=== PATIENT | female | born 1960 | race Caucasian/White ===

== ENCOUNTER 2019-08-13 09:57 | Emergency (ER) | payer OTHER ==
[2019-08-13] MEDS ORDERED: Ondansetron INJ* 2 MG/ML VIAL IV ONE (10:28)
[2019-08-13] MEDS ORDERED: NS 0.9% 1000 ML** 1,000 ML IV ONE ×2 (10:28→11:40)
[2019-08-13 10:45] LABS: Influenza A Molecular Negative (Negative); Influenza B Molecular Negative (Negative)
--- NOTE | 2019-08-13 11:26 | UC ---
Nausea/Vomiting/Diarrhea HPI - HPI Summary HPI Summary: PATIENT COMES IN WITH 4 DAYS OF NAUSEA AND VOMITING AND BODY ACHES/CHILLS. NO DIARRHEA. NO DOCUMENTED FEVER. STATES SHE IS RECOVERING FROM A URI. HAS BEEN UNABLE TO KEEP ANY OF HER FOOD OR MEDICATION DOWN FOR A FEW DAYS. IS FEELING FATIGUED AND DEHYDRATED. - History of Current Complaint Chief Complaint: UCGeneralIllness Stated Complaint: VOMITING Time Seen by Provider: 08/13/19 10:25 Hx Obtained From: Patient Onset/Duration: Gradual Onset, Lasting Days, Still Present Timing: Constant Severity Initially: Moderate Severity Currently: Moderate Pain Intensity: 0 Pain Scale Used: 0-10 Numeric Character: Not Applicable Aggravating Factor(s): Food Alleviating Factor(s): Nothing Nausea/Vomiting Presence: Nauseated, Vomiting Vomiting Frequency: Every 1-2 hours Nausea/Vomiting Duration: 3-7 days Vomiting Characteristics: Retching, Nonbilious Diarrhea Presence: No - Allergies/Home Medications Allergies/Adverse Reactions: Allergies Allergy/AdvReac Type Severity Reaction Status Date / Time iodine Allergy Intermediate Altered Verified 08/13/19 10:21 Mental Status hydrocodone Allergy [place] Verified 08/13/19 10:21 contrast dye Allergy Intermediate Shakes Uncoded 08/13/19 10:21 Home Medications: Home Medications Escitalopram Oxalate [Lexapro 20 mg] 20 mg PO QAM 11/27/14 [History Confirmed ] Methocarbamol 1,500 mg PO Q6H PRN 09/25/18 [History Confirmed 08/13/19] Acetaminophen-Cod #4 Tablet 1 tab PO SEE INSTRUCTIONS MDD 6 tablets 11/27/18 [ History Confirmed 08/13/19] Lisinopril TAB* [Prinivil TAB 10 MG*] 10 mg PO DAILY 11/27/18 [History Confirmed 08/13/19] Venlafaxine EXT RELEASE CAP* [Effexor Xr CAP*] 37.5 mg PO DAILY 11/27/18 [ History Confirmed 08/13/19] Carisoprodol TAB* [Soma TAB*] 350 mg PO Q6H PRN MDD 4 05/21/19 [History Confirmed 08/13/19] Gabapentin TAB(NF) [Neurontin 600 mg TAB(NF)] 600 mg PO TID 05/21/19 [History Confirmed 08/13/19] Morphine TAB Extended Rel(*) [Ms Contin(*)] 15 mg PO BID MDD 2 05/21/19 [ History Confirmed 08/13/19] Ondansetron ODT TAB* [Zofran Odt TAB*] 4 mg PO Q6H PRN #20 tab.odt 08/13/19 [Rx] PMH/Surg Hx/FS Hx/Imm Hx - Additional Past Medical History Additional PMH: LUPUS, SCELRODERMA, ARTHRITIS - Surgical History Surgical History: Yes Surgery Procedure, Year, and Place: HERNIA SURGERY 2014 - Family History Known Family History: Positive: Non-Contributory - Social History Alcohol Use: None Substance Use Type: Marijuana Substance Use Comment - Amount & Last Used: occasional Smoking Status (MU): Light Every Day Tobacco Smoker Type: Cigarettes Amount Used/How Often: 10 day When Did the Patient Quit Smoking/Using Tobacco: 26 YEARS, QUIT FOR 5; SMOKED FOR 5, BUT PLANS TO QUIT AGAIN Household Exposure Type: Cigarettes Review of Systems All Other Systems Reviewed And Are Negative: Yes Constitutional: Positive: Chills, Fatigue ENT: Positive: Negative Respiratory: Positive: Cough Cardiovascular: Positive: Negative Gastrointestinal: Positive: Vomiting, Nausea. Negative: Abdominal Pain, Diarrhea Genitourinary: Positive: Negative Musculoskeletal: Positive: Negative Physical Exam Triage Information Reviewed: Yes Appearance: No Pain Distress, Well-Nourished, Ill-Appearing - FATIGUED Vital Signs: Initial Vital Signs Temp 97.6 F 08/13/19 10:13 Pulse 131 08/13/19 10:13 Resp 20 08/13/19 10:13 BP 138/96 08/13/19 10:13 Pulse Ox 98 08/13/19 10:13 Laboratory Tests 08/13/19 10:33 Influenza A (Rapid) Negative Influenza B (Rapid) Negative Vital Signs Reviewed: Yes Eyes: Positive: Conjunctiva Clear ENT: Positive: Hearing grossly normal Neck: Positive: Supple Respiratory Exam: Normal Cardiovascular: Positive: Tachycardia Abdomen Description: Positive: Nontender, Soft. Negative: Distended, Guarding Bowel Sounds: Positive: Present Musculoskeletal: Positive: No Edema Neurological: Positive: Alert Psychological: Positive: Age Appropriate Behavior Skin: Negative: Rashes Re-Evaluation - Re-Evaluation First Eval Re-Evaluation Time: 11:45 - FEELS IMPROVED AFTER 1 L NORMAL SALINE AND 4 MG ZOFRAN. WILL INFUSE A SECOND LITER. Change: Improved Second Eval Re-Evaluation Time: 13:00 - PT CONTINUES TO FEEL BETTER BUT O2 DOWN AND HR UP Change: Improved Naus/Vom/Diarrhea Course/Dx - Course Course Of Treatment: PATIENT ARRIVES WITH 4 DAYS OF NAUSEA AND VOMITING. HAS BEEN UNABLE TO KEEP ANYTHING DOWN FOR THIS TIME. MUCOUS MEMBRANES DRY, HEART RATE ELEVATED ON ARRIVAL. AFTER 2 L OF NORMAL SALINE AND 4 MG OF ZOFRAN PATIENT FELT BETTER AND LOOKED BETTER HOWEVER HER HEART RATE REMAINED ELEVATED IN THE 120S AND HER OXYGEN LEVEL WAS ABOUT 92%. DISCUSSED CHEST X-RAY HOWEVER PATIENT DECLINES. DENIES SHORTNESS OF BREATH OR CHEST PAIN. DISCUSSED TRANSFER TO THE ER FOR FURTHER EVALUATION OF HER CONTINUED TACHYCARDIA AND RELATIVELY LOW OXYGEN SATURATION HOWEVER PATIENT DECLINES THIS WELL. SHE HAS CHRONIC PAIN AND HAS BEEN UNABLE TO TAKE HER PAIN MEDICATION FOR 4 DAYS DUE TO HER NAUSEA. SHE IS CONFIDENT THAT HER HEART RATE WILL IMPROVE ONCE HER PAIN MEDS ARE ON BOARD. PT DECLINES TRANSFER TO ER. ADVISED THAT SHE COULD BE RISKING WORSENING OF HER CONDITION THAT COULD POSE A THREAT TO HER LIFE, HEALTH AND MEDICAL SAFETY. SHE VERBALIZES UNDERSTANDING AND CONTINUES TO DECLINE TRANSFER. HAS PCP APPT [facility] SO WILL HAVE VITALS RECHECKED AT THAT TIME. - Differential Dx/Diagnosis Provider Diagnosis: Nausea and vomiting, Dehydration Condition At Discharge: Stable Discharge ED - Sign-Out/Discharge Documenting (check all that apply): Patient Departure All imaging exams completed and their final reports reviewed: No Studies - Discharge Plan Condition: Stable Disposition: HOME Patient Education Materials: Acute Nausea and Vomiting (ED) Referrals: Larissa Ramirez [Primary Care Provider] - (KEEP YOUR APPT [facility]) Additional Instructions: YOU FELT IMPROVED AND YOU LOOKED BETTER AFTER 2 L OF NORMAL SALINE AND 4 MG OF ZOFRAN. YOUR HEART RATE REMAINED ELEVATED AND YOUR OXYGEN SATURATION WAS ABOUT 92%. THIS IS NOT DANGEROUSLY LOW BUT IT IS LOWER THAN WHAT I WOULD EXPECT FOR SOMEONE WITHOUT AN UNDERLYING LUNG CONDITION. YOU HAVE DECLINED BOTH CHEST X- RAY AND TRANSFER TO THE EMERGENCY ROOM TODAY WITH THE UNDERSTANDING THAT YOUR CONDITION MAY WORSEN LEADING TO RESPIRATORY DISTRESS/FAILURE, CARDIAC ARREST, /DISABILITY. TAKE ZOFRAN PRESCRIBED TO HELP WITH NAUSEA. THIS WILL HOPEFULLY ALLOW YOU TO REHYDRATE ORALLY AT HOME. IF YOU ARE STILL UNABLE TO KEEP ANYTHING DOWN OR IF YOUR HEART RATE CONTINUES TO BE ELEVATED OVER 100 BEATS PER MINUTE OR IF YOU DEVELOP SYMPTOMS SUCH FEVER, ABDOMINAL PAIN, SHORTNESS OF BREATH, CHEST PAIN , DIZZINESS, BLOOD IN THE VOMIT YOU ARE TO GO DIRECTLY TO THE ER WITHOUT FAIL. KEEP YOUR PCP APPT [facility]. - Billing Disposition and Condition Condition: STABLE Disposition: Home
[2019-08-13 13:28] VITALS: BP 147/92
[2019-08-13] MEDS ORDERED: Ondansetron ODT TAB* 4 MG PO ONE (13:29)
== END 2019-08-13 13:45 | disposition home or self-care (01) ==
LOC: UCEAST 09:57
DX: R11.2 Nausea with vomiting, unspecified (principal); E86.0 Dehydration; R68.83 Chills (without fever); R53.83 Other fatigue; R05 Cough; F17.210 Nicotine dependence, cigarettes, uncomplicated; M32.9 Systemic lupus erythematosus, unspecified; M34.9 Systemic sclerosis, unspecified; Z88.5 Allergy status to narcotic agent; Z91.09 Other allergy status, other than to drugs and biological substances; Z91.041 Radiographic dye allergy status
CPT/HCPCS: 96360; 96361; 96374; 99212; A9270-GY; G0463; J2405